=== PATIENT | female | born 1980 | race Caucasian/White ===

== ENCOUNTER 2021-01-25 05:24 | Inpatient (IN) ==
--- NOTE | 2021-01-15 08:45 | Anesthesiology Consultation ---
Date of Service January 15, 2021 Assessment & Plan (1) Encounter for pre-operative examination: Chart Review Chart Review: data entry technician initiated Per nursing assessment 01/14/21, patient denies any recent travel. No known Covid positive contacts or Covid related symptoms. No known Covid infection in the past 90 days. Pt is NOT vaccinated for Covid. Preop Covid testing scheduled 01/21/21= will await results History Surgery Operation Date: 01/25/21 08:50 Proposed Procedures p Section in LD (Delivery of Baby Through Abdominal Incision) - Delmis Lopez MD, FACOG Height/Weight Height: 5 ft 8 in Weight: 92.533 kg Allergies Allergy/AdvReac Type Severity Reaction Status Date / Time Penicillins Allergy Severe THROAT Verified 01/14/21 16:13 CLOSES, HIVES, Medications Home Medications Medication Instructions Recorded Confirmed Last Taken pediatric multivitamin no.76 1 tab PO DAILY 06/16/20 01/14/21 Unknown (Flintstones Complete) Past Medical History Medical History No known health problems Past Family History Family History Mother Thyroid cancer Past Surgical History Surgical History History of placement of ear tubes Hx of section S/P tonsillectomy Social History Smoking Status: Never smoker Do You Dip or Chew Tobacco: No Hx Alcohol Use: No Hx Substance Use: No substance use type: does not use Lab Results Anesthesia Preop Results Results Anesthesia Widget: Hgb 11.3 g/dL (12.0-16.0) L 12/01/20 Hct 33.0 % (37-47) L 12/01/20
[2021-01-25] MEDS ORDERED: LACTATED RINGER'S 1,000 ML IV SCH ×2 (05:30→10:24)
[2021-01-25] MEDS ORDERED: CITRIC ACID/SODIUM CITRATE 15 ML UDC PO SCH (06:00)
[2021-01-25] MEDS ORDERED: CLINDAMYCIN 900 MG in DEXTROSE 5% 50 ML IV ONE (06:15)
[2021-01-25 06:21] LABS: Basophils # (auto) 0.03 K/uL (0-0.2); Basophils % (auto) 0.4 %; Eosinophils # (auto) 0.11 K/uL (0-0.5); Eosinophils % (auto) 1.3 %; Hematocrit (blood only) 30.2 % (37-47); Hemoglobin 10.2 g/dL (12.0-16.0); Immature Granulocytes # (auto) 0.04 K/uL (0.00-0.02); Immature Granulocytes % (auto) 0.5 %; Lymphocytes # (auto) 1.63 K/uL (1.2-3.4); Lymphocytes % (auto) 19.4 %; Mean Corpuscular Hemoglobin 30.1 pg (25-34); Mean Corpuscular Volume 89.1 fL (80-100); Mean Platelet Volume 11.5 fL (7.4-10.4); Monocytes # (auto) 0.79 K/uL (0.11-0.59); Monocytes % (auto) 9.4 %; Platelet Count 162 K/uL (130-400); RDW Coefficient of Variation 13.2 % (11.5-14.5); RDW Standard Deviation 42.9 fL (36.4-46.3); Red Blood Count 3.39 M/uL (4.2-5.4)
[2021-01-25 06:27] LABS: Mean Corpuscular Hgb Conc 33.8 g/dL (32-36)
[2021-01-25] MEDS ORDERED: MoRPHine SULFATE PF 1 MG/ML 10 ML AMP/VIAL ONE (06:42)
[2021-01-25] MEDS ORDERED: OXYTOCIN 10 UNITS/ML VIAL ONE (06:42)
[2021-01-25] MEDS ORDERED: fentaNYL citrate 100 MCG/2 ML VIAL ONE (06:42)
--- NOTE | 2021-01-25 06:45 | History & Physical Report ---
Date of Service January 25, 2021 Assessment & Plan (1) Previous delivery affecting , antepartum: Plan: Repeat section. The patient was counseled to the nature of the procedure including alternatives such as labor. Risks were discussed including bleeding infection injury to bowel bladder ureter vessels and even baby. The risks of internal organ injury were discussed as being higher with prior sections. Deep Vein Thrombosis, pulmonary embolus and breakdown of the incision discussed. Deep vein thrombosis pulmonary embolus hernia and failure of the incision to heal were discussed Patient verbalized understanding of this and was given ample time to ask questions Admission and Anticipated Discharge Date Admission Date: January 25, 2021 History of Present Illness Primary Care Provider: NO PCP wishes repeat c/s. 39+ weeks GA Allergies Allergy/AdvReac Type Severity Reaction Status Date / Time Penicillins Allergy Severe THROAT Verified 01/22/21 09:48 CLOSES, HIVES, Home Medications Medication Instructions Recorded Confirmed Type pediatric multivitamin no.76 1 tab PO DAILY 06/16/20 01/22/21 History (Flintstones Complete) Patient History Medical History No known health problems Surgical History History of placement of ear tubes Hx of section S/P tonsillectomy Family History Mother Thyroid cancer Social History Smoking Status: Never smoker Second Hand Exposure: No; Do You Dip or Chew Tobacco: No; Tobacco Cessation Education Requested by Patient: No Hx Alcohol Use: No Hx Substance Use: No Preferred Language: Hebrew Communication Ability: Effective Transmission Design Engineer Required: No Beliefs That Will Affect Care: None marital status: Single marital status details: LEONA (40) [phone] Current Living Situation: Significant Other Current Living Situation Comment: lives with 2 kids, no pets. current occupational status: employed current occupation: Teacher Other Information That Helps Us Care for You: No Feels Safe at Home: Yes Safety Concerns: Feels Safe At This Time Review of Systems as per Subjective / HPI Physical Exam Constitutional: WD/WN, vitals as above well developed and well nourished Respiratory: normal respiratory effort, lungs clear to auscultation normal respiratory effort Cardiovascular: RRR, no murmur, no edema Gastrointestinal (Abdomen): normal bowel sounds, soft, nontender, no hepatosplenomegaly Results & Data ([facility]) Vital Signs (Past 12 Hours) Vital Signs Temp Pulse Resp BP 01/25/21 05:42 72 110/67 01/25/21 05:37 97.7 F 20 Coding Level of Care Code None Diagnoses Previous delivery affecting , antepartum O34.219
[2021-01-25] MEDS ORDERED: GENTAMICIN CONSULT ACTIVE PRN (07:06)
[2021-01-25] MEDS ORDERED: NALOXONE HCL 0.08 MG in SYRINGE 1.8 ML IV PRN (07:08)
[2021-01-25] MEDS ORDERED: MoRPHine SULFATE 2 MG/ML CARP IV PRN (07:08)
[2021-01-25] MEDS ORDERED: PROMETHAZINE HCL 12.5 MG in SODIUM CHLORIDE 0.9% 50 ML IV PRN (07:08)
[2021-01-25] MEDS ORDERED: MoRPHine SULFATE PF 1 MG/ML 10 ML AMP/VIAL INT SPINAL ONE (07:08)
[2021-01-25] MEDS ORDERED: ONDANSETRON INJ 2 MG/ML 2 ML VIAL IV PRN (07:08)
[2021-01-25] MEDS ORDERED: diphenhydrAMINE 50 MG/ML VIAL IV PRN (07:08)
[2021-01-25] MEDS ORDERED: NALOXONE HCL 0.4 MG/1 ML VIAL/CARP IV PRN (07:08)
[2021-01-25] MEDS ORDERED: NALBUPHINE HCL INJ 10 MG/ML AMP IV PRN (07:08)
[2021-01-25] MEDS ORDERED: ePHEDrine sulfate 50 MG/ML AMP IV PRN (07:08)
[2021-01-25] MEDS ORDERED: NALOXONE HCL 1 MG in SODIUM CHLORIDE 0.9% 1000ML 1,000 ML IV PRN (07:08)
[2021-01-25] MEDS ORDERED: LACTATED RINGER'S 500 ML IV PRN (07:08)
[2021-01-25] MEDS ORDERED: KETOROLAC 30 MG/ML VIAL IV PRN (07:08)
[2021-01-25] MEDS ORDERED: NO NARCOTICS OR SEDATIVES SCH (07:15)
[2021-01-25] MEDS ORDERED: GENTAMICIN SULFATE 380 MG in DEXTROSE 5% 100 ML IV SCH (07:15)
[2021-01-25] MEDS ORDERED: DC INTRASPINAL MORPHINE SCH (07:15)
[2021-01-25] MEDS ORDERED: SODIUM CHLORIDE 0.9% 1000ML 1,000 ML IV SCH (07:15)
--- NOTE | 2021-01-25 08:49 | Operative Report ---
PG Post Operative Report Pre & Post Diagnosis Operation Date: 01/25/21 07:30 Pre-Op Diagnosis: Term intrauterine , desires repeat section Post-Op Diagnosis: Term intrauterine , desires repeat section. Living female child at 0806 I identified the patient and participated in the time-out.: Yes Procedure Operation Date: 01/25/21 07:30 Actual Procedures p Section in LD (Delivery of Baby Through Abdominal Incision) for living female child at 0806(Bilateral) - Delmis Lopez MD, FACOG Surgeon Delmis Lopez MD, FACOG Stainless Steel Finisher Dr. Reddy Estimated Blood Loss 400 Findings Consistent with Post-Op Diagnosis Specimens cord blood, gases Description of Procedure Regional anesthetic was given by anesthesia patient had a Khan catheter inserted by nursing patient was prepped and draped in supine position with a leftward tilt preoperative antibiotics were given timeout performed Pickups with teeth were used to test the skin site and it was found adequate for incision scalpel used to make a Pfannenstiel incision cutting down through subcutaneous fat through the fascia fascia was then dissected laterally with the curved Donohue's fascia was released superiorly and inferiorly from the rectus muscles with the curved Donohue scissors, rectus muscle split peritoneal cavity entered in a superior location. There were some adhesions of the bladder flap these were carefully dissected away with Metzenbaums, then opening enlarged to allow exposure bladder retractor placed Metzenbaums used to dissect away the bladder flap low segment transverse incision made on the uterus with scalpel entry was done bluntly with the extract operator's finger hysterotomy incision extended with the extract operator's finger in the usual fashion baby was delivered then by flexion of the head and pressure from the elder assistant on the abdomen mouth and then nares were suctioned baby was then delivered fully without difficulty without excessive force live vigorous cord clamped and cut cord gases obtained cord blood obtained placenta removed manually within ensured all placenta removed with a moist lap sponge uterus exteriorized IV Pitocin had been started by anesthesia and uterine tone improved. The uterus was closed in 2 layers first layer and 0 Monocryl running locked second layer 0 Monocryl nonlock ed after generous irrigation and suction of the cul-de-sac and bladder flap regions hemostasis was excellent uterus was placed back in the peritoneal cavity and hemostasis was excellent rectus muscles were inspected and found to be dry fascia closed with 0 Vicryl subcutaneous fat closed with 3-0 Vicryl prior to this subcutaneous fat was irrigated skin closed with 4-0 subcuticular Monocryl incision Steri-Stripped urine was clear at the end of the procedure Anatomically the uterus and adnexa were normal I attest to the content of the Intraoperative Record and any orders documented therein. Any exceptions are noted below. Procedure Pre-op/Post-op diagnoses: Pre-Op/Post-Op Diagnoses Operation Date: 01/25/21 07:30 Pre-Op Diagnosis: Term intrauterine , desires repeat section Post-Op Diagnosis: Term intrauterine , desires repeat section. Living female child at 0806 Procedure: Procedures Operation Date: 01/25/21 07:30 Actual Procedure Side Surgeon p Section in LD (Delivery of Baby Through Abdominal Incision) for living female child at 0806 Bilateral Delmis Lopez MD, FACOG Estimated blood loss (mL): 400
[2021-01-25 08:56] LABS: Base Excess Cord Arterial Bld -2.8 mEq/L (-9-1.8); Base Excess Cord Venous Blood -3.1 mEq/L (-7.7-1.9); CO2 Cord Arterial Blood 51 mmHg (39.1-73.5); Cord Venous Blood HCO3 21 mmol/L (18.4-26.8); Cord Venous Blood PCO2 37 mmHg (30.4-57.2); Cord Venous Blood PO2 35 mmHg (14.1-43.3); Cord Venous Blood pH 7.38 (7.20-7.44); HCO3 Cord Arterial Blood 24 mmol/L (19.7-28.5); O2 Saturation Cord Venous Bld 68.8 % (<68); PO2 Cord Arterial Blood 22 mmHg (4.1-31.7); pH Cord Arterial Blood 7.29 (7.1-7.38)
[2021-01-25 08:57] LABS: Oxygen Sat Cord Arterial Blood < 60.0 % (<60)
[2021-01-25] MEDS ORDERED: PHENYLEPHRINE 100MCG/ML 5ML SYR ONE (09:04)
[2021-01-25] MEDS ORDERED: ONDANSETRON INJ 2 MG/ML 2 ML VIAL ONE (09:04)
[2021-01-25] MEDS ORDERED: KETOROLAC 30 MG/ML VIAL ONE (09:04)
[2021-01-25] MEDS ORDERED: MAGNESIUM HYDROXIDE SUSP 30 ML UDC PO PRN (10:24)
[2021-01-25] MEDS ORDERED: BENZOCAINE 20% AER SPR 82.5 GM CAN EXT PRN (10:24)
[2021-01-25] MEDS ORDERED: SUPERCREAM 0.870% 15 GM JAR EXT PRN (10:24)
[2021-01-25] MEDS ORDERED: HYDROCORTISONE ACETATE 25 MG SUPP PR PRN (10:24)
[2021-01-25] MEDS ORDERED: DIPHTHERIA/TETANUS/PERTUSSIS 0.5 ML SYR/VIAL IM ONE (10:24)
[2021-01-25] MEDS ORDERED: SENNA 8.6 MG TAB PO PRN (10:24)
--- NOTE | 2021-01-25 10:27 | Anesthesiology Progress Note ---
Date of Service January 25, 2021 Anesthesia Post Procedure Vital Signs Vital Signs: Temp Pulse Resp BP Pulse Ox 01/25/21 10:22 59 L 102/71 01/25/21 10:21 59 L 100 01/25/21 10:16 59 L 99 01/25/21 10:12 68 94/63 L 01/25/21 10:11 66 100 01/25/21 10:06 58 L 100 01/25/21 10:02 36.5 C 58 L 16 99/65 L 01/25/21 10:01 69 99 01/25/21 09:56 64 99 01/25/21 09:52 60 18 103/66 01/25/21 09:51 59 L 99 01/25/21 09:46 70 99 01/25/21 09:42 68 18 96/70 L 01/25/21 09:41 73 98 01/25/21 09:36 70 98 01/25/21 09:32 75 20 102/66 01/25/21 09:31 62 99 01/25/21 09:26 57 L 100 01/25/21 09:22 68 16 100/66 01/25/21 09:21 57 L 98 01/25/21 09:16 65 98 01/25/21 09:12 36.4 C L 77 16 105/63 01/25/21 09:11 59 L 98 01/25/21 09:06 59 L 98 01/25/21 09:02 36.4 C L 63 14 105/69 01/25/21 09:01 59 L 97 01/25/21 08:56 60 106/67 97 01/25/21 08:52 67 97/67 L 94 01/25/21 08:51 57 L 99 01/25/21 07:29 73 98 01/25/21 07:24 72 98 01/25/21 07:19 72 97 01/25/21 07:14 72 98 01/25/21 07:09 76 97 01/25/21 07:04 76 98 01/25/21 06:59 74 99 01/25/21 06:56 71 110/73 01/25/21 05:42 72 110/67 01/25/21 05:37 36.5 C 20 Transfer of Care Handoff Completed per policy Notes Mental Status: alert / awake / arousable and participated in evaluation Patient Amnestic to Procedure: Yes Nausea / Vomiting: adequately controlled Pain: adequately controlled Airway Patency, RR, SpO2: stable & adequate BP & HR: stable & adequate Hydration State: stable & adequate Anesthetic Complications: no major complications apparent and Pt Satisfied with anesthetic care
[2021-01-25] MEDS: OXYTOCIN 20 UNITS in LACTATED RINGER'S 1,000 ML IV SCH ×2 (11:06→19:26)
[2021-01-25] MEDS: MULTIVITAMIN CHEWABLE TAB PO SCH (11:45)
[2021-01-25] MEDS: SIMETHICONE 80 MG CHEW PO SCH ×3 (16:19→21:52)
[2021-01-25] MEDS ORDERED: DOCUSATE SODIUM 100 MG CAP PO SCH (21:00)
[2021-01-26] MEDS ORDERED: diphenhydrAMINE Capsule 25 MG CAP PO PRN (01:09)
[2021-01-26] MEDS ORDERED: KETOROLAC 30 MG/ML VIAL IV PRN (01:09)
[2021-01-26] MEDS ORDERED: IBUPROFEN 600 MG TAB PO PRN (01:09)
[2021-01-26] MEDS ORDERED: PROMETHAZINE HCL 25 MG in SODIUM CHLORIDE 0.9% 50 ML IV PRN (01:09)
[2021-01-26] MEDS ORDERED: ONDANSETRON INJ 2 MG/ML 2 ML VIAL IV PRN (01:09)
[2021-01-26] MEDS ORDERED: diphenhydrAMINE 50 MG/ML VIAL IV PRN (01:09)
[2021-01-26] MEDS ORDERED: MEPERIDINE HCL 50 MG/ML CARP IV PRN (01:09)
[2021-01-26 06:16] LABS: Basophils # (auto) 0.02 K/uL (0-0.2); Basophils % (auto) 0.2 %; Eosinophils # (auto) 0.11 K/uL (0-0.5); Hematocrit (blood only) 29.6 % (37-47); Hemoglobin 9.8 g/dL (12.0-16.0); Immature Granulocytes # (auto) 0.04 K/uL (0.00-0.02); Immature Granulocytes % (auto) 0.4 %; Lymphocytes # (auto) 1.11 K/uL (1.2-3.4); Lymphocytes % (auto) 10.5 %; Mean Corpuscular Hemoglobin 29.4 pg (25-34); Mean Corpuscular Hgb Conc 33.1 g/dL (32-36); Mean Corpuscular Volume 88.9 fL (80-100); Mean Platelet Volume 11.6 fL (7.4-10.4); Monocytes # (auto) 0.88 K/uL (0.11-0.59); Monocytes % (auto) 8.3 %; Neutrophils # (auto) 8.43 K/uL (1.4-6.5); Neutrophils % (auto) 79.6 %; Platelet Count 158 K/uL (130-400); RDW Coefficient of Variation 13.2 % (11.5-14.5); RDW Standard Deviation 42.7 fL (36.4-46.3); Red Blood Count 3.33 M/uL (4.2-5.4); White Blood Count 10.59 K/uL (4.8-10.8)
--- NOTE | 2021-01-26 06:56 | Obstetrical Progress Note ---
Date of Service <La Reddy DO - Last Filed: 01/26/21 06:55> January 26, 2021 Assessment & Plan <Lajacinto Reddy DO - Last Filed: 01/26/21 06:55> (1) Encounter for care and examination after delivery: 40 yo post op day1 from C/S with prior Hx c/s, doing well. -Continue routine post care and wound care -vital signs reviewed and WNL (Tmax 36.6) -Blood Type O+, GBS+ treated with gentamycin and clindamycin, Rubella immune -Encourage ambulation, monitor and control pain with Motrin, tylenol PRN, resume regular diet, monitor lochia -encourage breast feeding -hemoglobin 10.2 (8/9) -will remove dressing once 24hr have passed since operation Day #:: 1 <Delmis Lopez MD, FACOG - Last Filed: 01/26/21 07:39> (1) Encounter for care and examination after delivery: Subjective <La Reddy DO - Last Filed: 01/26/21 06:55> Ambulation: limited ambulation (hasn't tried walking yet) Voiding: siddiqui catheter in place (recently removed, has not tried voiding yet) Passing Gas:: No Diet Tolerance:: regular diet Lochia:: Moderate Feeding Type:: breast feeding Current Pain Level(1-10): 4 (pain well controlled on medication) Review of Systems Denies fever, chills, sweats Denies shortness of breath, difficulty breathing, chest pain, palpitations, chest pressure. Denies breast pain. Denies dysuria. Denies headache or changes in vision. Physical Exam <La Reddy DO - Last Filed: 01/26/21 06:55> General: Alert, oriented. No acute distress. Cardiac: Regular rate and rhythm, no murmurs/rubs/gallops. Respiratory: Clear to auscultation bilaterally a/p, no wheezes/rales/rhonchi. No increased work of breathing. Symmetrical chest rise. No respiratory distress. Abdomen: Soft, nontender, nondistended. Bowel sounds present. Uterus: Uterine fundus firm, palpable at umbilicus. Surgical scar bandaged Lower Extremities: No lower extremity edema or swelling. No deep calf pain. Chung's negative bilaterally. Results & Data ([facility]) <La Reddy, DO - Last Filed: 01/26/21 06:55> Vital Signs (Past 12 Hours) Vital Signs Temp Pulse Resp BP Pulse Ox 01/26/21 04:20 36.6 C 62 18 96/61 L 99 01/26/21 01:00 18 97 01/26/21 00:25 36.4 C L 64 18 101/64 99 01/26/21 00:00 18 97 01/25/21 22:34 20 99 01/25/21 21:40 20 99 01/25/21 20:40 20 99 01/25/21 19:40 20 98 01/25/21 19:35 36.8 C 66 20 97/65 L 97 Laboratory Results 01/26/21 01/25/21 01/25/21 Range/Units 05:52 08:06 08:06 WBC 10.59 (4.8-10.8) K/uL RBC 3.33 L (4.2-5.4) M/uL Hgb 9.8 L (12.0-16.0) g/dL Hct 29.6 L (37-47) % MCV 88.9 (80-100) fL MCH 29.4 (25-34) pg MCHC 33.1 (32-36) g/dL RDW Std Deviation 42.7 (36.4-46.3) fL RDW Coeff of Chrissie 13.2 (11.5-14.5) % Plt Count 158 (130-400) K/uL MPV 11.6 H (7.4-10.4) fL Immature Gran % (Auto) 0.4 % Neut % (Auto) 79.6 % Lymph % (Auto) 10.5 % Callahan % (Auto) 8.3 % Eos % (Auto) 1.0 % Baso % (Auto) 0.2 % Neut # (Auto) 8.43 H (1.4-6.5) K/uL Lymph # (Auto) 1.11 L (1.2-3.4) K/uL Callahan # (Auto) 0.88 H (0.11-0.59) K/uL Eos # (Auto) 0.11 (0-0.5) K/uL Baso # (Auto) 0.02 (0-0.2) K/uL Immature Gran # (Auto) 0.04 H (0.00-0.02) K/uL Cord ABG pH 7.29 (7.1-7.38) Cord ABG pCO2 51 (39.1-73.5) mmHg Cord ABG pO2 22 (4.1-31.7) mmHg Cord ABG HCO3 24 (19.7-28.5) mmol/L Cord ABG Base Excess -2.8 (-9-1.8) mEq/L Cord ABG O2 Sat < 60.0 (<60) % Cord VBG pH 7.38 (7.20-7.44) Cord VBG pCO2 37 (30.4-57.2) mmHg Cord VBG pO2 35 (14.1-43.3) mmHg Cord VBG HCO3 21 (18.4-26.8) mmol/L Cord VBG Base Excess -3.1 (-7.7-1.9) mEq/L Cord VBG O2 Sat 68.8 H (<68) % Barometric Pressure 736.5 736.3 mm/Hg Blood Gas Comments SMITH SMITH Blood Type Antibody Screen 01/25/21 Range/Units 05:48 WBC (4.8-10.8) K/uL RBC (4.2-5.4) M/uL Hgb (12.0-16.0) g/dL Hct (37-47) % MCV (80-100) fL MCH (25-34) pg MCHC (32-36) g/dL RDW Std Deviation (36.4-46.3) fL RDW Coeff of Chrissie (11.5-14.5) % Plt Count (130-400) K/uL MPV (7.4-10.4) fL Immature Gran % (Auto) % Neut % (Auto) % Lymph % (Auto) % Callahan % (Auto) % Eos % (Auto) % Baso % (Auto) % Neut # (Auto) (1.4-6.5) K/uL Lymph # (Auto) (1.2-3.4) K/uL Callahan # (Auto) (0.11-0.59) K/uL Eos # (Auto) (0-0.5) K/uL Baso # (Auto) (0-0.2) K/uL Immature Gran # (Auto) (0.00-0.02) K/uL Cord ABG pH (7.1-7.38) Cord ABG pCO2 (39.1-73.5) mmHg Cord ABG pO2 (4.1-31.7) mmHg Cord ABG HCO3 (19.7-28.5) mmol/L Cord ABG Base Excess (-9-1.8) mEq/L Cord ABG O2 Sat (<60) % Cord VBG pH (7.20-7.44) Cord VBG pCO2 (30.4-57.2) mmHg Cord VBG pO2 (14.1-43.3) mmHg Cord VBG HCO3 (18.4-26.8) mmol/L Cord VBG Base Excess (-7.7-1.9) mEq/L Cord VBG O2 Sat (<68) % Barometric Pressure mm/Hg Blood Gas Comments Blood Type O Positive Antibody Screen NEGATIVE Medications Administered Current Inpatient Medications Benzocaine (Benzocaine 20% Aer Spr 82.5 Gm Can) 1 appln EXT UD PRN PRN Reason: use on skin as needed Stop: 02/24/21 10:23 Bisacodyl (Bisacodyl 5 Mg Tabec) 5 mg PO 1999 [facility] Stop: 01/26/21 20:01 Bisacodyl (Bisacodyl 10 Mg Supp) 10 mg PA PRN PRN PRN Reason: Constipation Stop: 02/26/21 08:49 Cocaine HCl (Supercream 0.870% 15 Gm Jar) 1 gm EXT UD PRN PRN Reason: hemmorrhoidal inflammation Stop: 02/08/21 10:23 Diphenhydramine HCl (Diphenhydramine Capsule 25 Mg Cap) 25 mg PO QID PRN PRN Reason: Itching Stop: 02/25/21 01:08 Diphenhydramine HCl (Diphenhydramine 50 Mg/Ml Vial) 25 mg IV QID PRN PRN Reason: Itching Stop: 02/25/21 01:08 Docusate Sodium (Docusate Sodium 100 Mg Cap) 100 mg PO DAILY@ [facility] Stop: 02/24/21 20:59 Last Admin: 01/25/21 21:52 Dose: 100 mg Documented by: Ferrous Sulfate (Ferrous Sulfate 325 Mg Tab) 325 mg PO DAILY@ [facility] Stop: 02/25/21 07:59 Hydrocortisone (Hydrocortisone Acetate 25 Mg Supp) 25 mg PA BID PRN PRN Reason: Hemorrhoids Stop: 02/24/21 10:23 Gentamicin Sulfate 380 mg/ (Dextrose) 109.5 mls @ 100 mls/hr IV PREOP JIHAN; Protocol Stop: 01/26/21 07:14 Last Admin: 01/25/21 10:19 Dose: Not Given Documented by: Lactated Ringer's (Lr) 1,000 mls @ 125 mls/hr IV .Q8H JIHAN Stop: 02/24/21 10:23 Promethazine HCl 25 mg/ Sodium (Chloride) 51 mls @ 204 mls/hr IV Q4H PRN PRN Reason: Nausea And Vomiting Stop: 02/25/21 01:08 Ibuprofen (Ibuprofen 600 Mg Tab) 600 mg PO Q4H PRN PRN Reason: Pain Stop: 02/25/21 01:08 Ketorolac Tromethamine (Ketorolac 30 Mg/Ml Vial) 30 mg IV Q6H PRN PRN Reason: Pain Stop: 01/31/21 01:08 Magnesium Hydroxide (Magnesium Hydroxide Susp 30 Ml Udc) 30 ml PO HS PRN PRN Reason: Constipation Stop: 02/24/21 10:23 Meperidine HCl (Meperidine Hcl 50 Mg/Ml Carp) 50 - 75 mg IV Q4H PRN PRN Reason: Pain Stop: 02/09/21 01:08 Multivitamins/Folic Acid/Vitamin C (Multivitamin Chewable Tab) 1 tab PO DAILY [facility] Stop: 02/24/21 11:29 Last Admin: 01/25/21 11:45 Dose: Not Given Documented by: Ondansetron HCl (Ondansetron Inj 2 Mg/Ml 2 Ml Vial) 4 mg IV Q4H PRN PRN Reason: Nausea And Vomiting Stop: 02/25/21 01:08 Oxycodone/Acetaminophen (Oxycodone/Acetaminophen 5mg/325mg Tab) 1 - 2 tab PO Q4H PRN PRN Reason: Pain Stop: 02/09/21 01:08 Sennosides (Senna 8.6 Mg Tab) 17.2 mg PO HS PRN PRN Reason: Constipation Stop: 02/24/21 10:23 Simethicone (Simethicone 80 Mg Chew) 80 mg PO DAILY@08,13,17,21 JIHAN Stop: 02/24/21 12:59 Last Admin: 01/25/21 21:52 Dose: 80 mg Documented by: <Delmis Lopez MD, FACOG - Last Filed: 01/26/21 07:39> Co-Signing Physician Notes Resident Physician Supervision Note: I was present with Dr. Reddy during the history and exam. I discussed the case with the resident and agree with the findings and plan as documented in the note. Any exceptions or clarifications are listed here: [None] Documented By: Delmis Lopez MD, FACOG Resident Activity Tracking <La Reddy DO - Last Filed: 01/26/21 06:55> Resident Involvement: Resident Care Provided Care Provided: OB Delivery
[2021-01-26] MEDS ORDERED: diphenhydrAMINE HCL 25 MG/10 ML UDC PO PRN (07:26)
[2021-01-26] MEDS ORDERED: SENNOSIDES 8.8 MG/5 ML UDC PO PRN (07:28)
[2021-01-26] MEDS ORDERED: Nursing to Pharmacy Communication SCH (07:30)
[2021-01-26] MEDS ORDERED: PRENATAL VITAMIN 1 TAB PO SCH (08:00)
[2021-01-26] MEDS: SIMETHICONE 80 MG CHEW PO SCH ×4 (08:00→20:51)
[2021-01-26] MEDS ORDERED: FERROUS SULFATE 325 MG TAB PO SCH (08:00)
[2021-01-26] MEDS: MULTIVITAMIN CHEWABLE TAB PO SCH (08:14)
[2021-01-26] MEDS: DOCUSATE SODIUM SYRUP 100 MG/10 ML UDC PO SCH ×2 (08:14→20:51)
[2021-01-26] MEDS: IBUPROFEN 200 MG/10 ML UDC PO PRN ×4 (08:15→20:51)
[2021-01-26] MEDS: FERROUS SULFATE 325 MG/7.4 ML UDP PO SCH (08:15)
[2021-01-26] MEDS: oxyCODONE/ACETAMINOPHEN 5mg/325mg TAB PO PRN ×3 (08:16→17:02)
[2021-01-26] MEDS ORDERED: bisacodyL 5 MG TABEC PO SCH (20:00)
[2021-01-27] MEDS: oxyCODONE/ACETAMINOPHEN 5mg/325mg TAB PO PRN ×3 (00:39→08:45)
[2021-01-27] MEDS: IBUPROFEN 200 MG/10 ML UDC PO PRN ×2 (04:30→08:42)
--- NOTE | 2021-01-27 06:30 | Obstetrical Progress Note ---
Date of Service <La Reddy DO - Last Filed: 01/27/21 06:30> January 27, 2021 Assessment & Plan <La Reddy DO - Last Filed: 01/27/21 06:30> (1) Encounter for care and examination after delivery: 40 yo post op day2 from C/S with prior Hx c/s, doing well. -Continue routine post care and wound care -vital signs reviewed and WNL (Tmax 36.67 -Blood Type O+, GBS+ treated with gentamycin and clindamycin, Rubella immune -Encourage ambulation, monitor and control pain with Motrin, tylenol PRN, resume regular diet, monitor lochia -encourage breast feeding -hemoglobin 10.2-->9.8 (01/26) Day #:: 2 <Margo Negrete MD - Last Filed: 01/27/21 07:08> (1) Encounter for care and examination after delivery: Subjective <La Reddy DO - Last Filed: 01/27/21 06:30> Ambulation: ambulating normally Voiding: no voiding problems Passing Gas:: Yes Diet Tolerance:: regular diet Lochia:: Small Feeding Type:: breast feeding Current Pain Level(1-10): 2 (pain well controlled on medication) Review of Systems Denies fever, chills, sweats Denies shortness of breath, difficulty breathing, chest pain, palpitations, chest pressure. Denies breast pain. Denies dysuria. Denies headache or changes in vision. Physical Exam <DO Leatha Cedillo Last Filed: 01/27/21 06:30> General: Alert, oriented. No acute distress. Cardiac: Regular rate and rhythm, no murmurs/rubs/gallops. Respiratory: Clear to auscultation bilaterally a/p, no wheezes/rales/rhonchi. No increased work of breathing. Symmetrical chest rise. No respiratory distress. Abdomen: Soft, nontender, nondistended. Bowel sounds present. Uterus: Uterine fundus firm, palpable at umbilicus. Surgical scar clean and dry Lower Extremities: No lower extremity edema or swelling. No deep calf pain. Chung's negative bilaterally. Results & Data ([facility]) <La Reddy DO - Last Filed: 01/27/21 06:30> Vital Signs (Past 12 Hours) Vital Signs Temp Pulse Pulse Resp BP BP Pulse Ox 01/27/21 00:10 36.7 C 63 18 107/70 98 01/26/21 19:50 36.6 C 67 20 106/70 97 Medications Administered Current Inpatient Medications Benzocaine (Benzocaine 20% Aer Spr 82.5 Gm Can) 1 appln EXT UD PRN PRN Reason: use on skin as needed Stop: 02/24/21 10:23 Bisacodyl (Bisacodyl 10 Mg Supp) 10 mg OR PRN PRN PRN Reason: Constipation Stop: 02/26/21 08:49 Cocaine HCl (Supercream 0.870% 15 Gm Jar) 1 gm EXT UD PRN PRN Reason: hemmorrhoidal inflammation Stop: 02/08/21 10:23 Diphenhydramine HCl (Diphenhydramine 50 Mg/Ml Vial) 25 mg IV QID PRN PRN Reason: Itching Stop: 02/25/21 01:08 Diphenhydramine HCl (Diphenhydramine Hcl 25 Mg/10 Ml Udc) 25 mg PO QID PRN PRN Reason: Itching Stop: 02/25/21 07:25 Docusate Sodium (Docusate Sodium Syrup 100 Mg/10 Ml Udc) 100 mg PO DAILY@ [facility] Stop: 02/25/21 07:59 Last Admin: 01/26/21 20:51 Dose: 100 mg Documented by: Ferrous Sulfate (Ferrous Sulfate 325 Mg/7.4 Ml Udp) 325 mg PO DAILY@08 [facility] Stop: 02/25/21 07:59 Last Admin: 01/26/21 08:15 Dose: 325 mg Documented by: Hydrocortisone (Hydrocortisone Acetate 25 Mg Supp) 25 mg OR BID PRN PRN Reason: Hemorrhoids Stop: 02/24/21 10:23 Lactated Ringer's (Lr) 1,000 mls @ 125 mls/hr IV .Q8H JIHAN Stop: 02/24/21 10:23 Promethazine HCl 25 mg/ Sodium (Chloride) 51 mls @ 204 mls/hr IV Q4H PRN PRN Reason: Nausea And Vomiting Stop: 02/25/21 01:08 Ibuprofen (Ibuprofen 200 Mg/10 Ml Udc) 600 mg PO Q4H PRN PRN Reason: Pain Stop: 02/25/21 07:24 Last Admin: 01/27/21 04:30 Dose: 600 mg Documented by: Ketorolac Tromethamine (Ketorolac 30 Mg/Ml Vial) 30 mg IV Q6H PRN PRN Reason: Pain Stop: 01/31/21 01:08 Magnesium Hydroxide (Magnesium Hydroxide Susp 30 Ml Udc) 30 ml PO HS PRN PRN Reason: Constipation Stop: 02/24/21 10:23 Meperidine HCl (Meperidine Hcl 50 Mg/Ml Carp) 50 - 75 mg IV Q4H PRN PRN Reason: Pain Stop: 02/09/21 01:08 Multivitamins/Folic Acid/Vitamin C (Multivitamin Chewable Tab) 1 tab PO DAILY JIHAN Stop: 02/24/21 11:29 Last Admin: 01/26/21 08:14 Dose: 1 tab Documented by: Ondansetron HCl (Ondansetron Inj 2 Mg/Ml 2 Ml Vial) 4 mg IV Q4H PRN PRN Reason: Nausea And Vomiting Stop: 02/25/21 01:08 Oxycodone/Acetaminophen (Oxycodone/Acetaminophen 5mg/325mg Tab) 1 - 2 tab PO Q4H PRN PRN Reason: Pain Stop: 02/09/21 01:08 Last Admin: 01/27/21 04:30 Dose: 1 tab Documented by: Sennosides (Sennosides 8.8 Mg/5 Ml Udc) 17.2 mg PO HS PRN PRN Reason: Constipation Stop: 02/25/21 07:27 Simethicone (Simethicone 80 Mg Chew) 80 mg PO DAILY@08,,17, JIHAN Stop: 02/24/21 12:59 Last Admin: 01/26/21 20:51 Dose: 80 mg Documented by: <Margo Negrete MD - Last Filed: 01/27/21 07:08> Co-Signing Physician Notes Resident Physician Supervision Note: I interviewed and examined the patient. Discussed with Dr. Reddy and agree with findings and plan as documented in the note. Any exceptions or clarifications are listed here: POD2 s/p rCS, doing well. VSS, exam benign and wnl. Incision c/d/i. Desires to go home today, stable for d/c Documented By: Margo Negrete MD Resident Activity Tracking <La Reddy, DO - Last Filed: 01/27/21 06:30> Resident Involvement: Resident Care Provided Care Provided: OB Delivery
[2021-01-27 06:40] LABS: Hematocrit (blood only) 27.3 % (37-47)
[2021-01-27] MEDS: SIMETHICONE 80 MG CHEW PO SCH (08:38)
[2021-01-27] MEDS: DOCUSATE SODIUM SYRUP 100 MG/10 ML UDC PO SCH (08:39)
[2021-01-27] MEDS: MULTIVITAMIN CHEWABLE TAB PO SCH (08:39)
[2021-01-27] MEDS: FERROUS SULFATE 325 MG/7.4 ML UDP PO SCH (08:42)
[2021-01-27] MEDS ORDERED: bisacodyL 10 MG SUPP PR PRN (08:50)
--- NOTE | 2021-01-31 16:09 | Discharge Summary ---
Date of Service January 31, 2021 Admission HPI Per Admitting Provider wishes repeat c/s. 39+ weeks GA Admission Exam (Per Admitting) Constitutional WD/WN, vitals as above well developed and well nourished Respiratory normal respiratory effort, lungs clear to auscultation normal respiratory effort Cardiovascular RRR, no murmur, no edema Gastrointestinal (Abdomen) normal bowel sounds, soft, nontender, no hepatosplenomegaly Discharge Data Consultations 01/25/21 05:25 Consult Anesthesiology Stat Procedures Performed Operation Date: 01/25/21 07:30 Actual Procedures p Section in LD (Delivery of Baby Through Abdominal Incision) for living female child at 0806(Bilateral) - Delmis Lopez MD, [facility] Course (1) Encounter for care and examination after delivery: 40 yo post op day2 from C/S with prior Hx c/s, doing well. -Continue routine post care and wound care -vital signs reviewed and WNL (Tmax 36.67 -Blood Type O+, GBS+ treated with gentamycin and clindamycin, Rubella immune -Encourage ambulation, monitor and control pain with Motrin, tylenol PRN, resume regular diet, monitor lochia -encourage breast feeding -hemoglobin 10.2-->9.8 (10) Coding Level of Care Code None Diagnoses Encounter for care and examination after delivery Z39.2
== END 2021-01-27 10:59 | disposition home or self-care (01) | DRG 788 ==
LOC: 4S1 05:24 → EDSTATUS 08:50 → 4S2 11:45
DX: O34.211 Maternal care for low transverse scar from previous cesarean delivery; O99.824 Streptococcus B carrier state complicating childbirth; Z3A.39 39 weeks gestation of pregnancy; Z37.0 Single live birth; Z79.899 Other long term (current) drug therapy